=== PATIENT | male | born 1980 | race Caucasian/White ===

== ENCOUNTER → 2017-10-28 | Outpatient (CLI) | payer BC ==
--- NOTE | 2017-10-28 15:34 | RAD ---
Cervical spine radiograph 10/28/2017 2:09 PM INDICATION: Tingling in the right arm. COMPARISON: None available. TECHNIQUE: AP, swimmer's view, lateral, bilateral obliques, odontoid and Fuchs view of the cervical spine are provided. FINDINGS: The cervical spine is visualized from the craniocervical junction through the cervicothoracic junction. Alignment of the cervical spine is normal. No acute fracture is visualized. Bone mineralization is within normal limits. There is mild disc height loss at C5-C6 and C6-C7 with mild anterior marginal osteophytosis. There is no prevertebral soft tissue swelling. Mild facet arthropathy is identified at C5-C6 and C6-C7. Mild uncovertebral joint disease is identified at C5-C6 and C6-C7. There is mild osseous neuroforaminal stenosis at C5-C6 and moderate stenosis on the right at C6-C7. There is mild to moderate osseous neural foraminal stenosis on the left at C5-C6 and C6-C7. There is no osseous spinal canal stenosis. The lateral masses of C1 articulate appropriately with the C2 vertebral body. Dens is intact. IMPRESSION: Mild cervical spondylosis with osseous neural foraminal stenosis at C5-C6 and C6-C7, worse on the right. Electronically signed by: Oumou Bolanos MD (10/28/2017 3:31 PM) [id number]
== END | disposition home or self-care (01) ==
LOC: DXRAD 13:58
PROVIDERS: ATTEND Psychiatry & Neurology Neurology
DX: M47.892 Other spondylosis, cervical region (principal); M48.02 Spinal stenosis, cervical region
CPT/HCPCS: 72050

== ENCOUNTER 2021-06-23 07:32 | Emergency (ER) | payer BC ==
[~2021-06-23] VITALS: Ht 185.4 cm; Wt 118.1 kg
[2021-06-23 07:32] VITALS: BP 154/92
[2021-06-23] MEDS ORDERED: AZEL137S3 NS (08:00)
--- NOTE | 2021-06-23 08:02 | PHYS DOC ---
Past History Past Surgical History: Other Additional Past Surgical Histo: R shoulder Alcohol Use: Occasionally General Adult EDM: Chief Complaint: CONGESTION HPI: HPI: Patient is a 41-year-old male coming in for headache and congestion. Patient says his nose stopped up and he has been having pressure in the frontal part of his head for the past couple days. Denies any head injury, nausea or vomiting, vision changes, or recent falls or injuries. Has not had any fevers, loss of smell or taste. Patient is vaccinated against COVID and unsure if he got his influenza vaccine. Review of Systems: Review of Systems: All other systems within normal limits except for as noted in the HPI Allergies: Allergies: Allergies Coded Allergies Type Severity Reaction Last Updated Verified No Known Drug Allergies 06/23/21 No Physical Exam: PE: Constitutional: Well developed, well nourished, no acute distress, non-toxic appearance. [] HENT: Normocephalic, atraumatic, bilateral external ears normal, nose normal. Normal TMs, tenderness over maxillary sinuses. Notable tenderness [] Eyes: PERRLA, conjunctiva normal, no discharge. [] Neck: No rigidity, supple, no stridor. [] Cardiovascular: Regular rate and rhythm, brisk cap refill [] Lungs & Thorax: Non labored symmetric respirations, no tachypnea or respiratory distress [] Abdomen: Soft, nondistended. Skin: Warm, dry, no erythema, no rash. [] Back: Unremarkable Extremities: No deformities, range of motion grossly intact, no lower extremity edema [] Neurologic: Alert and oriented X 3, no focal deficits noted. [] Psychologic: Affect normal, judgement normal, mood normal. [] Current Patient Data: Vital Signs: Vital Signs Date Time Temp Pulse Resp B/P (MAP) Pulse Ox O2 Delivery O2 Flow Rate FiO2 06/23/21 07:32 97.6 95 16 154/92 (112) 97 Room Air EKG: EKG: [] Radiology/Procedures: Radiology/Procedures: [] Heart Score: C/O Chest Pain: No Risk Factors: Risk Factors: DM, Current or recent (<one month) smoker, HTN, HLP, family history of CAD, obesity. Risk Scores: Score 0 - 3: 2.5% MACE over next 6 weeks - Discharge Home Score 4 - 6: 20.3% MACE over next 6 weeks - Admit for Clinical Observation Score 7 - 10: 72.7% MACE over next 6 weeks - Early Invasive Strategies Course & Med Decision Making: Course & Med Decision Making Pertinent Labs and Imaging studies reviewed. (See chart for details) [] Aaron Disclaimer: Aaron Disclaimer: This electronic medical record was generated, in whole or in part, using a voice recognition dictation system. Departure Departure: Impression: Primary Impression: Sinus headache Disposition: HOME / SELF CARE / HOMELESS Condition: STABLE Referrals: DAVIE STYLES MD (PCP) Patient Instructions: Sinus Headache, [id number] Additional Instructions: Treat your symptoms with [id number] decongestants and follow directions on packaging. If symptoms persist follow-up with your primary care provider. Scripts Azelastine Hcl (AZELASTINE HCL) 137 Mcg/0.137 Ml [place].pump 2 SPR NS BID for congestion for 30 Days, #30 ML 0 Refills Prov: DONNA VARGAS MD 06/23/21 DONNA VARGAS MD June 23, 2021 08:02
== END 2021-06-23 08:05 | disposition home or self-care (01) ==
LOC: ER 07:32
DX: R51.9 Headache, unspecified (principal); R09.81 Nasal congestion
CPT/HCPCS: 99283